=== PATIENT | male | born 1950 | race Caucasian/White ===

== ENCOUNTER 2023-02-24 11:37 | Outpatient (CLI) | payer MEDICARE, SELFPAY ==
--- NOTE | ~2023-02-24 | US_ITS ---
EXAMINATION: US venous doppler [facility] DATE: 02/24/2023 12:24 INDICATION: Left lower limb swelling TECHNIQUE: Grayscale ultrasound images without and with compression and Doppler ultrasound images of the left lower extremity veins were obtained. COMPARISON: None. FINDINGS: The visualized portions of left common femoral vein, profunda (deep) femoral vein, femoral vein, popl iteal vein, posterior tibial veins, gastrocnemius vein and greater saphenous vein outflow are patent. There is an 8 x 1.5 cm complex lenticular fluid collection without internal flow or surrounding hype remia on color Doppler which extends along the superficial muscular fascia at the distal left thigh i n the region of bruising which most likely represents a hematoma. IMPRESSION: 1. No deep venous thrombosis in the left lower limb. 2. 8 x 1.5 cm complex fluid collection in the region of bruising at the distal left thigh most likely representing a hematoma. Reviewed, dictated and finalized at location A.
== END 2023-02-24 11:38 | disposition home or self-care (01) ==
PROVIDERS: PCP Family Medicine; Visit Provider Orthopaedic Surgery
DX: R60.0 Localized edema (principal)
CPT/HCPCS: 93971

== ENCOUNTER 2023-03-26 12:51 | Outpatient (CLI) | payer MEDICARE, SELFPAY ==
--- NOTE | ~2023-03-26 | XR_ITS ---
EXAMINATION: XR lg joint inject/asp w image DATE: 03/26/2023 13:55 INDICATION: Right glenohumeral joint osteoarthritis. TECHNIQUE: A time-out was performed to verify the patient's name, date of , and procedure to b e performed. The procedure including the risks, benefits, and alternatives was discussed with the pat ient. Risks discussed included bleeding and infection. The patient understood the risks and agreed to proceed. The skin overlying the right glenohumeral joint was prepped and draped in usual sterile fa shion. Anesthetic was administered with 1% lidocaine subcutaneously. A 22 G needle was advanced und er fluoroscopic guidance into the joint. Subsequently, injectate consisting of 3 mL 1% lidocaine and 1 mL 80 mg/mL Depo-Medrol was instilled. The needle was removed and the entry site was cleaned and dressed. There were no immediate complications. Fluoroscopy exposure time was 0.1 minutes. The total number of images was 1. FINDINGS: Real-time fluoroscopy demonstrates the needle in the right glenohumeral joint. Patient's pa in prior to procedure:05/17. Patient's pain following the procedure: 11/17. IMPRESSION: 1. Fluoroscopy guided right glenohumeral joint injection of local anesthetic and steroid with decreas e in the patient's presenting pain. Reviewed, dictated and finalized at location A. IMPRESSION: 1. Fluoroscopy guided right glenohumeral joint injection of local anesthetic an d steroid with decrease in the patient's presenting pain.
== END 2023-03-26 12:52 | disposition home or self-care (01) ==
PROVIDERS: PCP Family Medicine; Visit Provider Orthopaedic Surgery
DX: M19.111 Post-traumatic osteoarthritis, right shoulder (principal)
CPT/HCPCS: 20610; 77002; J1040